=== PATIENT | male | born 1945 | race Hispanic/Latino ===

== ENCOUNTER 2019-02-04 18:30 | Emergency (ER) | payer OTHER ==
--- NOTE | 2019-02-04 19:12 | Emergency Department Report ---
Chief Complaint: Back Pain/Injury Stated Complaint: LOWER BACK PAIN Time Seen by Provider: 02/04/19 19:10 - HPI History of Present Illness: CO CHRONIC BACK PAIN AGGRAVATED P LIFTING FURNITURE YEST NO NEW TRAUMA DID TAKE ANY MEDS AT HOME TO ER IN AMBULANCE NO S/S CAUDA EQUINA PT STATES TOO MUCH PAIN TO STAND PMH OBESE HTN CBP CAD BORDERLINE DM VSS MSE COMPLETED MSE screening note: Focused history and physical exam performed. Due to findings the following was ordered: ED Disposition for MSE Condition: Stable
[2019-02-04] MEDS ORDERED: TYLENOL PO ONE (19:57)
[2019-02-04] MEDS ORDERED: TYLENOL ONE (20:00)
[2019-02-04] MEDS ORDERED: APRESOLINE PO ONE (21:43)
[2019-02-04] MEDS ORDERED: DECADRON IM ONE (21:44)
[2019-02-04] MEDS ORDERED: TORADOL IM ONE (21:44)
[2019-02-04] MEDS ORDERED: MORPHINE IM ONE (21:44)
--- NOTE | 2019-02-04 21:49 | Emergency Department Report ---
ED Back Pain/Injury HPI - General Chief Complaint: Back Pain/Injury Stated Complaint: LOWER BACK PAIN Time Seen by Provider: 02/04/19 19:10 Source: patient Limitations: No Limitations - History of Present Illness Initial Comments: 73-year-old male presents to the ED with complaint of back pain. Patient states back pain started earlier today after lifting and moving furniture yesterday. Patient states pain is in the middle of his lower back, nonradiating, worse with movement. Patient denies radiation into the lower extremities, numbness or tingling, weakness of his lower extremities, urinary or bowel incontinence. Patient reports history of chronic back pain. MD Complaint: back pain -: This morning Similar Symptoms Previously: Yes Place: home Radiation: none Severity: severe Quality: sharp, aching Consistency: constant Improves With: immobilization Worsens With: movement, walking Context: while lifting Associated Symptoms: denies: numbness, difficulty urinating, incontinence, fever/chills - Related Data Home Medications Medication Instructions Recorded Confirmed Last Taken Atenolol [Tenormin] 100 mg PO DAILY 05/02/14 05/02/14 05/02/14 1 Hydralazine HCl [hydrALAZINE] 50 mg PO 05/02/14 05/02/14 05/02/14 1 Losartan [Cozaar] 100 mg PO QDAY 05/02/14 05/02/14 05/02/14 1 Previous Rx's Medication Instructions Recorded Last Taken Type HYDROcodone/APAP 7.5-325 [[place] 1 each PO Q6HR PRN #20 tablet 05/02/14 Unknown Rx 7.5/325 mg] Diazepam [Valium] 5 mg PO BID PRN #7 tablet 02/05/19 Unknown Rx Naproxen [Naprosyn] 500 mg PO BID #20 tablet 02/05/19 Unknown Rx predniSONE [Prednisone] 50 mg PO DAILY #5 tablet 02/05/19 Unknown Rx traMADol [Ultram] 50 mg PO Q6HR PRN #7 tablet 02/05/19 Unknown Rx Allergies Allergy/AdvReac Type Severity Reaction Status Date / Time No Known Allergies Allergy Verified 02/04/19 19:10 ED Review of Systems ROS: Stated complaint: LOWER BACK PAIN Other details as noted in HPI Comment: All other systems reviewed and negative Constitutional: denies: chills, fever Gastrointestinal: denies: abdominal pain Musculoskeletal: back pain Neurological: denies: weakness, numbness, paresthesias ED Past Medical Hx - Past Medical History Previous Medical History?: Yes Hx Hypertension: Yes Hx Diabetes: Yes Hx Renal Disease: Yes Additional medical history: chronic back pain - Surgical History Past Surgical History?: Yes Additional Surgical History: heart stents - Social History Smoking Status: Never Smoker Substance Use Type: None - Medications Home Medications: Home Medications Medication Instructions Recorded Confirmed Last Taken Type Atenolol [Tenormin] 100 mg PO DAILY 05/02/14 05/02/14 05/02/14 History 1 HYDROcodone/APAP 7.5-325 [[place] 1 each PO Q6HR PRN #20 tablet 05/02/14 Unknown Rx 7.5/325 mg] Hydralazine HCl [hydrALAZINE] 50 mg PO 05/02/14 05/02/14 05/02/14 History 1 Losartan [Cozaar] 100 mg PO QDAY 05/02/14 05/02/14 05/02/14 History 1 Diazepam [Valium] 5 mg PO BID PRN #7 tablet 02/05/19 Unknown Rx Naproxen [Naprosyn] 500 mg PO BID #20 tablet 02/05/19 Unknown Rx predniSONE [Prednisone] 50 mg PO DAILY #5 tablet 02/05/19 Unknown Rx traMADol [Ultram] 50 mg PO Q6HR PRN #7 tablet 02/05/19 Unknown Rx ED Physical Exam - General Limitations: No Limitations General appearance: alert - Head Head exam: Present: atraumatic, normocephalic - Eye Eye exam: Present: normal appearance - ENT ENT exam: Present: mucous membranes moist - Neck Neck exam: Present: normal inspection - Respiratory Respiratory exam: Present: normal lung sounds bilaterally. Absent: respiratory distress - Cardiovascular Cardiovascular Exam: Present: regular rate, normal rhythm - GI/Abdominal GI/Abdominal exam: Present: soft. Absent: distended, tenderness - Extremities Exam Extremities exam: Present: normal inspection - Back Exam Back exam: Present: tenderness (mild lower lumbar tenderness midline, bilateral paraspinal region) - Neurological Exam Neurological exam: Present: alert, oriented X3. Absent: motor sensory deficit - Psychiatric Psychiatric exam: Present: normal affect, normal mood - Skin Skin exam: Present: warm, dry, intact, normal color ED Course Vital Signs 04/06/19 04/06/19 04/07/19 19:10 22:47 01:04 Temperature 97.6 F Pulse Rate 66 85 65 Respiratory 20 20 Rate Blood Pressure 211/87 136/81 O2 Sat by Pulse 95 100 Oximetry - Reevaluation(s) Reevaluation #1: 02/05/19 00:46 Pt feeling much better at this time. Able to stand from chair and take a few steps unassisted. Will d/c at this time. CT negative. ED Medical Decision Making - Radiology Data Radiology results: report reviewed, image reviewed - Differential Diagnosis fracture, lumbar strain, herniated disc Critical care attestation.: If time is entered above; I have spent that time in minutes in the direct care of this critically ill patient, excluding procedure time. ED Disposition Clinical Impression: Acute myofascial strain of lumbosacral region Disposition: TO HOME OR SELFCARE Is pt being admited?: No Condition: Stable Instructions: Muscle Strain (ED), Acute Low Back Pain (ED) Prescriptions: Naproxen [Naprosyn] 500 mg PO BID #20 tablet predniSONE [Prednisone] 50 mg PO DAILY #5 tablet traMADol [Ultram] 50 mg PO Q6HR PRN #7 tablet PRN Reason: Pain Diazepam [Valium] 5 mg PO BID PRN #7 tablet PRN Reason: Spasms Referrals: PRIMARY CAREMD [Primary Care Provider] - 3-5 Days JESSICA ROBLES MD [Staff Physician] - 3-5 Days Time of Disposition: 00:47
--- NOTE | 2019-02-04 22:23 | Cat Scan Report ---
PROCEDURE: CT LUMBAR SPINE WO CON HISTORY: BACK PAIN FINDINGS: Unenhanced CT of the lumbar spine was performed and data was reformatted into sagittal and coronal planes. These images demonstrate no fracture or malalignment of the lumbar spine. At T12-L1, L1-L2, and L2-L3 there are no posterior disc abnormalities. At L3-L4, there is a minimal posterior disc bulge which does not result in canal stenosis or signific ant neural foraminal narrowing. At L4-L5, there is a posterior disc bulge which effaces the anterior margin of the thecal sac. There is mild bilateral neural foraminal narrowing without nerve root impingement. At L5-S1 there is a posterior disc bulge which effaces the anterior margin of the thecal sac. This li josh abuts the S1 nerve roots in the central canal, axial image 81. There is mild bilateral neural fo raminal narrowing without nerve root impingement. There is aortic atherosclerotic change without aneurysmal dilation of the aorta IMPRESSION: No fracture is seen in the lumbar spine This document is electronically signed by Colt Nj MD., February 04 2019 10:21:36 PM ET
[2019-02-04 22:50] VITALS: BP 136/81
[2019-02-04] MEDS ORDERED: VALIUM PO ONE (23:44)
== END 2019-02-05 01:09 | disposition home or self-care (01) ==
LOC: ED 18:30
DX: S39.012A Strain of muscle, fascia and tendon of lower back, initial encounter (principal); I10 Essential (primary) hypertension; E11.9 Type 2 diabetes mellitus without complications; G89.29 Other chronic pain; Z87.442 Personal history of urinary calculi; X50.0XXA Overexertion from strenuous movement or load, initial encounter; Y93.89 Activity, other specified; Y92.098 Other place in other non-institutional residence as the place of occurrence of the external cause; Y99.8 Other external cause status
CPT/HCPCS: 72131; 96372; 99284; J1100; J1885; J2270

== ENCOUNTER 2020-11-17 02:10 | Emergency (ER) | payer OTHER ==
[2020-11-17] MEDS ORDERED: IBUPROFEN 600 MG TAB PO ONE (05:02)
[2020-11-17] MEDS ORDERED: dexAMETHasone 20 MG/5 ML VIAL IM ONE (05:02)
[2020-11-17] MEDS ORDERED: ACETAMINOPHEN 500 MG TAB PO ONE (05:03)
--- NOTE | 2020-11-17 05:48 | Emergency Department Report ---
ED Extremity Problem HPI - General Chief complaint: Extremity Injury, Lower Stated complaint: PAIN IN BOTH LEGS/HIPS Source: patient Mode of arrival: Ambulatory Limitations: Physical Limitation - History of Present Illness Initial comments: Patient is a 75-year-old white male with a history of morbid obesity, hypertension, chronic osteoarthritis and chronic low back pain who presents to the ED with complaint of acute exacerbation of his chronic low back pain, bilateral hip and knee pain for the last 2 weeks, worse in the last 2 days. Patient states that he is unable to perform any active range of motion especially walking around because of severe low back pain as well as bilateral hip and knee pain. Patient states that he had similar episode of exacerbation of his chronic pain about 6 months ago and was treated in the ED for pain and discharged home on pain medications. Patient denies fall, traumatic injury, dysuria, urinary frequency and urgency, hematuria, testicular pain, fever, chills, chest pain, shortness of breath, abdominal pain, dizziness, headache, neck pain, numbness and tingling or weakness of lower extremities bilaterally, urinary retention or bowel incontinence and saddle paresthesia. MD Complaint: extremity pain (Bilateral hip pain; Bilateral knee pain and low back pain), joint paint (Bilateral hip and knee pain) -: Gradual, year(s) (12) Location: bilateral lower extremity (hips and knees) History of Same: Yes (chronic osteoarthritis) -: Yes arthralgia (Bilateral hips and knees), No fever, No associated dyspnea, No associated chest pain Radiation: none Severity scale (0 -10): 8 Quality: aching, sharp, constant Consistency: constant Improves with: medication Worsens with: weight bearing, walking, exertion, palpation Associated Symptoms: denies other symptoms, arthralgias (Bilateral knee and hip pain). denies: chest pain, shortness of breath, fever, myalgias, rash, other - Related Data Home Medications Medication Instructions Recorded Confirmed Last Taken Atenolol [Tenormin] 100 mg PO DAILY 05/02/14 05/02/14 05/02/14 1 Hydralazine HCl [hydrALAZINE] 50 mg PO 05/02/14 05/02/14 05/02/14 1 Losartan [Cozaar] 100 mg PO QDAY 05/02/14 05/02/14 05/02/14 1 Previous Rx's Medication Instructions Recorded Last Taken Type HYDROcodone/APAP 7.5-325 [[place] 1 each PO Q6HR PRN #20 tablet 05/02/14 Unknown Rx 7.5/325 mg] Diazepam [Valium] 5 mg PO BID PRN #7 tablet 02/05/19 Unknown Rx predniSONE [Prednisone] 50 mg PO DAILY #5 tablet 02/05/19 Unknown Rx Naproxen [Naprosyn TAB] 500 mg PO BID PRN #24 tablet 11/17/20 Unknown Rx methOCARBAMOL [Robaxin TAB] 750 mg PO QHS PRN #24 tab 11/17/20 Unknown Rx predniSONE [Deltasone] 50 mg PO QDAY #7 tab 11/17/20 Unknown Rx traMADoL [Ultram 50 MG tab] 50 mg PO Q6HR PRN #12 tablet 11/17/20 Unknown Rx Allergies Allergy/AdvReac Type Severity Reaction Status Date / Time No Known Allergies Allergy Verified 02/04/19 19:10 ED Review of Systems ROS: Stated complaint: PAIN IN BOTH LEGS/HIPS Other details as noted in HPI Constitutional: denies: chills, fever Eyes: denies: eye pain, eye discharge, vision change ENT: denies: ear pain, throat pain Respiratory: denies: cough, shortness of breath, wheezing Cardiovascular: denies: chest pain, palpitations Endocrine: no symptoms reported Gastrointestinal: denies: abdominal pain, nausea, diarrhea Genitourinary: denies: urgency, dysuria Musculoskeletal: back pain (Low back pain), arthralgia (Bilateral hip and knee pain), myalgia. denies: joint swelling Skin: denies: rash, lesions Neurological: denies: headache, weakness, paresthesias Psychiatric: denies: anxiety, depression Hematological/Lymphatic: denies: easy bleeding, easy bruising ED Past Medical Hx - Past Medical History Previous Medical History?: Yes Hx Hypertension: Yes Hx Diabetes: Yes Hx Renal Disease: Yes Hx Arthritis: Yes Additional medical history: chronic back pain, Enlarged Prostate - Surgical History Past Surgical History?: Yes Additional Surgical History: heart stents - Social History Smoking Status: Never Smoker - Medications Home Medications: Home Medications Medication Instructions Recorded Confirmed Last Taken Type Atenolol [Tenormin] 100 mg PO DAILY 05/02/14 05/02/14 05/02/14 History 1 HYDROcodone/APAP 7.5-325 [[place] 1 each PO Q6HR PRN #20 tablet 05/02/14 Unknown Rx 7.5/325 mg] Hydralazine HCl [hydrALAZINE] 50 mg PO 05/02/14 05/02/14 05/02/14 History 1 Losartan [Cozaar] 100 mg PO QDAY 05/02/14 05/02/14 05/02/14 History 1 Diazepam [Valium] 5 mg PO BID PRN #7 tablet 02/05/19 Unknown Rx predniSONE [Prednisone] 50 mg PO DAILY #5 tablet 02/05/19 Unknown Rx Naproxen [Naprosyn TAB] 500 mg PO BID PRN #24 tablet 11/17/20 Unknown Rx methOCARBAMOL [Robaxin TAB] 750 mg PO QHS PRN #24 tab 11/17/20 Unknown Rx predniSONE [Deltasone] 50 mg PO QDAY #7 tab 11/17/20 Unknown Rx traMADoL [Ultram 50 MG tab] 50 mg PO Q6HR PRN #12 tablet 11/17/20 Unknown Rx ED Physical Exam - General Limitations: Physical Limitation General appearance: alert, in no apparent distress - Head Head exam: Present: atraumatic, normocephalic, normal inspection - Eye Eye exam: Present: normal appearance, PERRL, EOMI Pupils: Present: normal accommodation - ENT ENT exam: Present: normal exam, normal orophraynx, mucous membranes moist, TM's normal bilaterally, normal external ear exam - Neck Neck exam: Present: normal inspection, full ROM - Respiratory Respiratory exam: Present: normal lung sounds bilaterally. Absent: respiratory distress, wheezes, rales, rhonchi, chest wall tenderness, accessory muscle use, decreased breath sounds, prolonged expiratory - Cardiovascular Cardiovascular Exam: Present: regular rate, normal rhythm, normal heart sounds. Absent: systolic murmur, diastolic murmur, rubs, gallop - GI/Abdominal GI/Abdominal exam: Present: soft, normal bowel sounds. Absent: tenderness, guarding, rebound, hyperactive bowel sounds, organomegaly - Extremities Exam Extremities exam: Present: normal inspection, full ROM, tenderness (Palpable bilateral hip and knee tenderness), normal capillary refill. Absent: pedal edema, joint swelling, calf tenderness - Back Exam Back exam: Present: normal inspection, full ROM, tenderness (Palpable lumbosacral paraspinal musculoskeletal tenderness), muscle spasm, paraspinal tenderness - Neurological Exam Neurological exam: Present: alert, oriented X3, CN II-XII intact, normal gait, reflexes normal - Psychiatric Psychiatric exam: Present: normal affect, normal mood - Skin Skin exam: Present: warm, dry, intact, normal color. Absent: rash ED Course Vital Signs 11/17/20 04:44 Temperature 97.5 F L Pulse Rate 65 Respiratory 18 Rate Blood Pressure 209/88 O2 Sat by Pulse 98 Oximetry ED Medical Decision Making - Medical Decision Making This is a 75-year-old white male with a history of morbid obesity, hypertension, chronic osteoarthritis and chronic low back pain who presents to the ED with complaint of acute exacerbation of his chronic low back pain, bilateral hip and knee pain for the last 2 weeks, worse in the last 2 days. Patient states that he is unable to perform any active range of motion especially walking around because of severe low back pain as well as bilateral hip and knee pain. Patient states that he had similar episode of exacerbation of his chronic pain about 6 months ago and was treated in the ED for pain and discharged home on pain medications. In the ED, patient is alert and oriented x3 and is not in distress. Patient however appears to be in pain during the physical exam. Patient was treated for pain in the ED and on reevaluation, patient's pain is well controlled medications. Patient will discharge home on pain medications and advised to follow-up with his primary care physician in 5 to 7 days for reevaluation. Patient was otherwise advised return to the ED immediately if symptoms get worse. - Differential Diagnosis Chronic low back pain; chronic osteoarthritis; muscle strain; muscle spasm Critical care attestation.: If time is entered above; I have spent that time in minutes in the direct care of this critically ill patient, excluding procedure time. ED Disposition Clinical Impression: Acute exacerbation of chronic low back pain, Chronic osteoarthritis, Spasm of muscle of lower back Chronic low back pain with bilateral sciatica Qualifiers: Back pain laterality: bilateral Qualified Code(s): M54.42 - Lumbago with sciatica, left side; M54.41 - Lumbago with sciatica, right side; G89.29 - Other chronic pain Disposition: DC-01 TO HOME OR SELFCARE Is pt being admited?: No Does the pt Need Aspirin: No Condition: Stable Instructions: Muscle Cramps and Spasms, [id number], Arthritis, [id number], Chronic Back Pain, [id number] Additional Instructions: Take medication with food, drink plenty of fluids and follow-up with your primary care physician in 5 to 7 days for reevaluation. Return to the ED immediately if your symptoms get worse. Prescriptions: methOCARBAMOL [Robaxin TAB] 750 mg PO QHS PRN #24 tab PRN Reason: Muscle Spasm predniSONE [Deltasone] 50 mg PO QDAY #7 tab Naproxen [Naprosyn TAB] 500 mg PO BID PRN #24 tablet PRN Reason: Pain , Severe (7-10) traMADoL [Ultram 50 MG tab] 50 mg PO Q6HR PRN #12 tablet PRN Reason: Pain Referrals: [facility] [Provider Group] - 3-5 Days Time of Disposition: 05:49 Print Language: ROMANIAN
[2020-11-17 07:21] VITALS: BP 190/82
== END 2020-11-17 07:05 | disposition home or self-care (01) ==
LOC: ED 02:10
DX: M54.42 Lumbago with sciatica, left side (principal); M54.41 Lumbago with sciatica, right side; M19.90 Unspecified osteoarthritis, unspecified site; M62.830 Muscle spasm of back; G89.29 Other chronic pain; E66.01 Morbid (severe) obesity due to excess calories; I10 Essential (primary) hypertension; E11.9 Type 2 diabetes mellitus without complications; Z98.890 Other specified postprocedural states; Z79.899 Other long term (current) drug therapy; Z68.41 Body mass index [BMI] 40.0-44.9, adult
CPT/HCPCS: 96372; 99282; J1100